=== PATIENT | male | born 1970 | race Caucasian/White ===

== ENCOUNTER → 2017-11-15 | Day surgery (SDC) | payer OTHER, MEDICARE ==
[~2017-11-15] VITALS: Ht 167.6 cm; Wt 90.7 kg
[~2017-11-15] MED LIST: FLOMAX0.4 M1 PO; KEPPRA500 M1 PO; PERCOCET 5-3251 EACH PO; ZOFRAN ODT4 M1 SL
--- NOTE | 2017-11-15 15:01 | RADIOLOGY REPORT ---
EXAMINATION: Intraoperative fluoroscopy CLINICAL INFORMATION: Right ureteroscopy with stent removal COMPARISON: KUB and renal ultrasound 11/11/2017 TECHNIQUE: Intraoperative fluoroscopy was provided for use by Dr. Goodrich. A total of 4 images were saved to PACS. A radiologist was not present during today's procedure. TOTAL FLUOROSCOPIC TIME: 0.3 minutes FINDINGS\E\IMPRESSION: Intraoperative fluoroscopy provided for use by Dr. Goodrich. Please see operative note for detailed findings.
--- NOTE | 2017-11-22 15:47 | Operative Report ---
Operative/Inv Procedure Report Surgery Date: 11/15/17 Name of Procedure: cystoscopy: right stent insertion; fluoroscopy Pre-Operative Diagnosis: right hydro/colic with ureter stone Post-Operative Diagnosis: same Estimated Blood Loss: scant Surgeon/Toppiece Cutter: Ethan Goodrich MD Anesthesia: moderate sedation Complications: none Operative/Procedure Note Note: The patient was taken to the operating room and placed on the OR table in supine position. Timeout was performed, with the patient awake, in order to confirm identity, procedure, antibiotics, anesthesia, and other pertinent information. After adequate anesthesia and antibiotics, the patient was placed in lithotomy stirrups draped and prepped in the usual surgical fashion. A 22 Pashto cystoscope sheath with 30 angle lens was inserted into the urethra without difficulty. Upon entering the bladder, the bladder was noted to be free of tumor, free of stone, with clear reflux from the left ureteral orifice, and no efflux from the right. Under direct visualization the right ureter orifice was intubated with a 5 Pashto open-ended catheter. A retrograde pyelogram, with fluoroscopy was performed. The distal ureter filling defect consistent with stone was clearly visible, with proximal hydroureter, and hydronephrosis. The open-ended stent was then removed, followed by insertion of a 0.035 Glidewire into the right ureteral orifice. The Glidewire was advanced into the right renal pelvis easily, confirmed by fluoroscopy. Over the Glidewire, a 6 x 24 Bard inlay ureteral stent was advanced. With the proximal coil reaching the right renal pelvis, and the distal coil in the bladder, the Glidewire was removed. The stent remained in proper place both cystoscopically, and fluoroscopically. The bladder was then drained, and the cystoscope was removed. All sponge needle and instrument count were correct at the end of the case. The patient tolerated procedure well, and will follow-up as outpatient for further plan/procedures. Discharge Disposition: Same Day Admissions CC: Ethan Goodrich MD
--- NOTE | 2017-11-29 13:22 | Operative Report ---
Operative/Inv Procedure Report Surgery Date: 11/15/17 Name of Procedure: cystoscopy: right stent removal: right flex. ureteroscopy with laser litho. of ureter stones. Pre-Operative Diagnosis: right ureter stone and stent Post-Operative Diagnosis: same Estimated Blood Loss: less than 50ml Surgeon/Nursing Staff Development Coordinator: Ethan Goodrich MD Anesthesia: laryngeal mask airway Specimens: right stent Complications: none Operative/Procedure Note Note: Patient was taken to the operating room placed on the OR table in supine position. Timeout was performed, with the patient awake, in order to confirm the patient's correct identity, procedure, laterality, anesthesia, and other pertinent perioperative information.. After adequate anesthesia, and antibiotics, the patient was then placed in lithotomy stirrups, draped and prepped in the usual surgical fashion. A 22 Burmese cystoscope sheath with 30 angle lens was inserted without difficulty. Upon entering the bladder, the bladder was noted to be free of tumor, free of stone. Both orifices were in their orthotopic position, with clear reflux from the left ureter. The right ureter had a stent in place, which was grasped with an aligator grasper, and extracted intact, and without difficulty. The cystoscope was then re-inserted into the bladder. The right ureteral orifice was intubated with an 8 Burmese cone-tipped catheter. Retrograde pyelogram was performed revealing a filling defect in the mid-proximal ureter consistent with stone. On fluoroscopy, there was no hydronephrosis. The cone- tipped catheter was removed, and then the right orifice was intubated with a 0.035 gluidewire. The Glidewire was advanced into the right ureter, and right renal pelvis, with fluoroscopic visualization. Over the gluide wire, a flexible ureteroscope was rail-roaded, and advanced, with fluoroscopic visualization, into the right renal pelvis. After performing pyeloscopy in the upper, middle, and lower poles of the kidney, which revealed no stone or tumor, the ureteroscope was retracted slowly into the renal pelvis. The renal pelvis was also free of tumor, and free of stone. The ureteroscope was further retracted to the level of the mid ureter where the ureter stone was visualized. Under direct visualization, the 400 g holmium YAG laser fiber was inserted through the ureteroscope. With the laser fiber in direct contact with the stone, the yag laser was activated, and laser lithotrypsy under direct visualization was performed. The ureter stone was completely pulvorized into multiple fragments, confirmed on fluoroscopy. Several framents were extracted and sent for analysis. The flexible ureteroscope slowly retracted, and the remainder of the right ureter was aslo visualize in order to confim no stone framents, nor tumor was seen on the way out. All sponge needle and instrument count were correct at the end of the case. The patient tolerated both procedures well, and was taken to the recovery room in satisfactory condition. Once discharged, the pt. will have pain medication, antibiotics and instructions to follow up in one or 4-6 week's time Discharge Disposition: PACU CC: Ethan Goodrich MD
== END ==
LOC: STS 03:17
DX: N20.1 Calculus of ureter (principal); Z87.442 Personal history of urinary calculi; R56.9 Unspecified convulsions
CPT/HCPCS: 74018; 82355; J1940; J2250